=== PATIENT | male | born 1980 | race Caucasian/White ===

== ENCOUNTER 2020-04-07 14:15 | Outpatient (CLI) | payer BC ==
--- NOTE | 2020-04-07 14:27 | RAD ---
4 views of the left elbow: 04/07/2020 COMPARISON: None HISTORY: Pain FINDINGS: Soft tissue swelling is seen posteriorly, most prominent adjacent to the olecranon. The lat eral imaging demonstrates no discrete elbow joint effusion. No acute fracture or evidence of dislocation is seen. IMPRESSION: Nonspecific soft tissue swelling which may represent inflammatory/infectious change or th e sequela of recent trauma. No acute fracture or dislocation.
== END 2020-04-07 14:16 | disposition home or self-care (01) ==
LOC: RAD-FRANK 14:15
DX: M25.522 Pain in left elbow (principal); M79.89 Other specified soft tissue disorders; Z87.828 Personal history of other (healed) physical injury and trauma